=== PATIENT | female | born 1985 | race American Indian/Alaskan Native ===

== ENCOUNTER 2017-07-24 10:22 | Outpatient (CLI) | payer BC ==
--- NOTE | 2017-08-07 08:41 | Cat Scan Report ---
FINAL REPORT EXAM: CT PELVIS W CONTRAST HISTORY: PELVIC PAIN TECHNIQUE: CT images are acquired through the pelvis following intravenous administration of contrast. Transaxial , coronal and sagittal reformations are provided. PRIORS: None. FINDINGS: Anteverted uterus. Functional left ovarian cyst measures up to 2 cm. Asymmetrically enlarged right ovary with possible 2.5 centimeter cystic structure. Fallopian contraceptive devices are noted. Small volume of dependent pelvic ascites. Positive enteric contrast is seen in the distal ileum and colon extending near the region of the splenic flexure. Normal caliber hollow enteric organs. Normal appendix. No lymphadenopathy. Mild rectus diastasis. Major vasculature is unremarkable. Imaged portion of the skeleton is unremarkable. IMPRESSION: Gynecologic organs are not well evaluated on CT, however the right ovary appears grossly larger than the left. Pelvic ultrasound is recommended for further evaluation. No other potentially acute findings are identified.
== END 2017-07-24 10:23 | disposition home or self-care (01) ==
LOC: CT 10:22
PROVIDERS: ATTEND Obstetrics & Gynecology
DX: N83.202 Unspecified ovarian cyst, left side (principal); R18.8 Other ascites
CPT/HCPCS: 72193; Q9967